=== PATIENT | male | born 1935 | race Caucasian/White ===

== ENCOUNTER 2018-11-29 11:33 | Emergency (ER) | payer MEDICARE, OTHER ==
[~2018-11-29] VITALS: Ht 190.5 cm; Wt 81.7 kg
[~2018-11-29 11:33] MED LIST: BENZ100A PO; GUAI120S1 PO
[2018-11-29 12:01] LABS: BASOPHILS ABSOLUTE AUTO 0.07 K/mm3 (0.00-0.23); BASOPHILS PERCENT AUTO 2 % (0-2); EOSINOPHILS ABSOLUTE AUTO 0.02 K/mm3 (0.00-0.68); EOSINOPHILS PERCENT AUTO 1 % (0-6); Hematocrit 42.1 % (37.0-53.0); Hemoglobin 14.1 g/dL (13.5-17.5); IMMATURE GRAN ABSOLUTE AUTO 0.01 K/mm3 (0.00-0.10); IMMATURE GRAN PERCENT AUTO 0 % (0-1); LYMPHOCYTES PERCENT AUTO 35 % (21-46); MONOCYTES ABSOLUTE AUTO 0.64 K/mm3 (0.16-1.47); MONOCYTES PERCENT AUTO 20 % (4-13); Mean Corpuscular HGB 34.5 pg (26.0-34.0); Mean Corpuscular HGB Conc 33.5 g/dL (31.5-36.5); Mean Corpuscular Volume 103 fL (80-100); Mean Platelet Volume 10.8 fL (9.1-12.4); NEUTROPHILS ABSOLUTE AUTO 1.33 K/mm3 (1.96-9.15); NEUTROPHILS PERCENT AUTO 42 % (41-73); Platelet Count 230 K/mm3 (150-400); RDW Coefficient Variation 14.3 % (11.7-14.2); RDW Standard Deviation 53.4 fL (35.1-46.3); Red Blood Cell Count 4.09 M/mm3 (4.30-5.90); White Blood Cell Count 3.17 K/mm3 (4.00-11.30)
[2018-11-29 12:30] LABS: Alanine Aminotransfer (ALT/SGP 25 U/L (12-78); Albumin, Blood 3.8 g/dL (3.4-5.0); Albumin/Globulin Ratio 1.3 (0.8-1.8); Alk Phos 74 U/L (50-136); Anion Gap 5 mmol/L (6-16); Aspartate Aminotrans (AST/SGOT 16 U/L (12-37); Bilirubin, Total 0.8 mg/dL (0.1-1.0); Blood Urea Nitrogen 11 mg/dL (8-24); Bun/Creatinine Ratio 15.6 (12.0-20.0); CO2, Blood 25 mmol/L (21-32); Calcium, Blood 8.9 mg/dL (8.5-10.1); Chloride, Blood 107 mmol/L (98-108); Creatinine, Blood 0.71 mg/dL (0.60-1.20); Globulin, Blood 2.9 g/dL (2.2-4.0); Glomerular Filtration Rate >60 (60-); Glucose, Blood 66 mg/dL (70-99); Potassium, Blood 4.5 mmol/L (3.5-5.5); Sodium, Blood 137 mmol/L (136-145); Total Protein, Blood 6.7 g/dL (6.4-8.2); Troponin I <0.015 ng/mL (0.000-0.040)
[2018-11-29] MEDS ORDERED: FINA5 PO (12:43)
== END 2018-11-29 13:40 | disposition home or self-care (01) ==
LOC: ER 11:33
PROVIDERS: Physician Assistant
DX: R07.89 Other chest pain (principal); Z87.891 Personal history of nicotine dependence
CPT/HCPCS: 36415; 80053; 84484; 85025; 93005; 93010; 99284-25

== ENCOUNTER 2021-01-13 15:36 | Inpatient (IN) | payer OTHER ==
[~2021-01-13] VITALS: Ht 195.6 cm; Wt 90.0 kg
[~2021-01-13 15:36] MED LIST changes: +AMLO10 PO; +Aspir 8181 MG PO; +FINA5 PO; +METO50ER PO; +MULVITA PO
[2021-01-13] MEDS ORDERED: Aspirin EC81 MG PO (15:52)
[2021-01-13] MEDS ORDERED: SILD25T PO (15:53)
[2021-01-13 17:57] LABS: Hematocrit 33.2 % (37.0-53.0); Hemoglobin 10.8 g/dL (13.5-17.5); Mean Corpuscular HGB 30.5 pg (26.0-34.0); Mean Corpuscular HGB Conc 32.5 g/dL (31.5-36.5); Mean Corpuscular Volume 94 fL (80-100); Mean Platelet Volume 11.2 fL (9.1-12.4); Platelet Count 164 K/mm3 (150-400); RDW Coefficient Variation 15.4 % (11.7-14.2); RDW Standard Deviation 52.6 fL (35.1-46.3); Red Blood Cell Count 3.54 M/mm3 (4.30-5.90); White Blood Cell Count 4.22 K/mm3 (4.00-11.30)
[2021-01-13 18:25] LABS: BAND PERCENT MAN 3 % (0-8); BASOPHILS ABSOLUTE MAN 0.08 K/mm3 (0.00-0.23); BASOPHILS PERCENT MAN 2 % (0-2); EOSINOPHILS PERCENT MAN 0 % (0-6); LYMPHOCYTES ABSOLUTE MAN 0.92 K/mm3 (0.84-5.20); LYMPHOCYTES PERCENT MAN 22 % (21-46); MONOCYTES ABSOLUTE MAN 0.54 K/mm3 (0.16-1.47); MONOCYTES PERCENT MAN 13 % (4-13); NEUTROPHILS ABSOLUTE MAN 2.65 K/mm3 (1.96-9.15); SEG NEUTROPHILS PERCENT MAN 60 % (41-73); TOTAL CELLS COUNTED 100
[2021-01-13 18:30] LABS: Alanine Aminotransfer (ALT/SGP 90 U/L (12-78); Albumin, Blood 2.8 g/dL (3.4-5.0); Albumin/Globulin Ratio 0.8 (0.8-1.8); Alk Phos 90 U/L (50-136); Anion Gap 6 mmol/L (6-16); Aspartate Aminotrans (AST/SGOT 66 U/L (12-37); Bilirubin, Total 0.5 mg/dL (0.1-1.0); Blood Urea Nitrogen 28 mg/dL (8-24); Bun/Creatinine Ratio 27.5 (12.0-20.0); CO2, Blood 23 mmol/L (21-32); Calcium, Blood 8.5 mg/dL (8.5-10.1); Chloride, Blood 103 mmol/L (98-108); Creatinine, Blood 1.02 mg/dL (0.60-1.20); Globulin, Blood 3.6 g/dL (2.2-4.0); Glomerular Filtration Rate >60 (60-); Glucose, Blood 93 mg/dL (70-99); Potassium, Blood 4.9 mmol/L (3.5-5.5); Sodium, Blood 132 mmol/L (136-145); Total Protein, Blood 6.4 g/dL (6.4-8.2); Troponin I 0.052 ng/mL (0.000-0.040)
[2021-01-13 20:08] LABS: D-Dimer, Quantitative 1.02 mg/L FEU (0.00-0.52)
[2021-01-13 20:31] LABS: International Normalized Ratio 0.98; Prothrombin Time Results 10.6 Sec (9.7-11.5)
[2021-01-13] MEDS ORDERED: CO Q10100 MG PO (21:39)
[2021-01-13] MEDS ORDERED: Vitamin B-121000 MCG PO (21:45)
[2021-01-13] MEDS ORDERED: Magnesium250 MG PO (21:46)
[2021-01-13] MEDS ORDERED: tumeric PO (21:47)
[2021-01-14 00:20] LABS: SARS-Cov-2 (COVID-19) PCR, MMC NEGATIVE (NEGATIVE)
[2021-01-14 04:10] LABS: Hematocrit 30.8 % (37.0-53.0); Mean Corpuscular HGB 30.3 pg (26.0-34.0); Mean Corpuscular HGB Conc 32.5 g/dL (31.5-36.5); Mean Corpuscular Volume 93 fL (80-100); Mean Platelet Volume 10.7 fL (9.1-12.4); Platelet Count 188 K/mm3 (150-400); RDW Coefficient Variation 15.5 % (11.7-14.2); RDW Standard Deviation 52.7 fL (35.1-46.3); White Blood Cell Count 3.93 K/mm3 (4.00-11.30)
[2021-01-14 04:27] LABS: International Normalized Ratio 1.03; Prothrombin Time Results 11.1 Sec (9.7-11.5)
[2021-01-14 04:36] LABS: Alanine Aminotransfer (ALT/SGP 71 U/L (12-78); Albumin, Blood 2.5 g/dL (3.4-5.0); Albumin/Globulin Ratio 0.8 (0.8-1.8); Alk Phos 74 U/L (50-136); Anion Gap 4 mmol/L (6-16); Aspartate Aminotrans (AST/SGOT 45 U/L (12-37); Bilirubin, Total 0.5 mg/dL (0.1-1.0); Blood Urea Nitrogen 25 mg/dL (8-24); Bun/Creatinine Ratio 22.7 (12.0-20.0); CO2, Blood 24 mmol/L (21-32); Calcium, Blood 7.9 mg/dL (8.5-10.1); Chloride, Blood 104 mmol/L (98-108); Globulin, Blood 3.1 g/dL (2.2-4.0); Glomerular Filtration Rate >60 (60-); Glucose, Blood 82 mg/dL (70-99); Magnesium, Blood 2.5 mg/dL (1.6-2.4); Phosphorus, Blood 3.1 mg/dL (2.5-4.9); Potassium, Blood 4.6 mmol/L (3.5-5.5); Sodium, Blood 132 mmol/L (136-145); Total Protein, Blood 5.6 g/dL (6.4-8.2)
[2021-01-14 05:00] LABS: BAND PERCENT MAN 16 % (0-8); BASOPHILS PERCENT MAN 0 % (0-2); EOSINOPHILS ABSOLUTE MAN 0.03 K/mm3 (0.00-0.68); EOSINOPHILS PERCENT MAN 1 % (0-6); LYMPHOCYTES % ATYPICAL MANUAL 7 % (0-0); LYMPHOCYTES ABSOLUTE MAN 1.02 K/mm3 (0.84-5.20); LYMPHOCYTES PERCENT MAN 19 % (21-46); MONOCYTES ABSOLUTE MAN 0.58 K/mm3 (0.16-1.47); MONOCYTES PERCENT MAN 15 % (4-13); NEUTROPHILS ABSOLUTE MAN 2.27 K/mm3 (1.96-9.15); SEG NEUTROPHILS PERCENT MAN 42 % (41-73); TOTAL CELLS COUNTED 100
--- NOTE | 2021-01-14 06:11 | NUR ---
SHIFT SUMMARY PATIENT ADMITTED TO UNIT AT APPROXIMETLY 0. FOUND TO BE A PLEASANT GENTLEMAN WHO IS A&OX4, [place], AND FOLLOWING COMMANDS. PRESENTS WITH CP RATED 5/10 AND DULL. VSS. ON RA. MARII ON THE MONITOR WITH A 1ST DEGREE BLOCK. A LITTLE BIT OF AN UNSTEADY GAIT NOTED PATIENT USUALLY USES A CANE. STATES BEEN FEELING WEAKER THAN USUAL LATELY. PRN FENTANYL Q2H DOING WELL FOR PAIN CONTROL. PATIENT COMPLAINING OF DRY COUGH AND ROBUSTUSSIN ORDERED. HEPARIN DRIP INFUSING PER ORDER. NO ACUTE CONCERNS AT THIS TIME. WILL CONTINUE TO MONITOR UNTIL DAY SHIFT RN ASSUMES CARE.
--- NOTE | 2021-01-14 18:50 | NUR ---
NO ACUTE EVENTS THIS SHIFT, VSS. PATIENT IS ALERT AND ORIENTED, DENIES CHEST PAIN THIS SHIFT. HEPARIN GTT CONTINUED PER EMAR. ECHO DONE TODAY, PLAN IS FOR STRESS TEST TOMORROW. DIURESIS SCHEDULE STARTED TODAY WITH IV LASIX GIVEN PER EMAR. PATIENT ABLE TO CALL APPROPRIATELY, PATIENT HAD CONSISTENT OUTPUT IN URINAL THROUGHOUT SHIFT.
--- NOTE | 2021-01-15 05:36 | NUR ---
SHIFT SUMMARY PT IS ALERT AND ORIENTED. AFTER PROCEDURE PAITIENT HAS BEEN VERY LETHARGIC. BILAT LOWER EXT HAVE PULSES PER DOPPLER AND ARE BOTH WARM TO TOUCH. PT HAS COMPLAINED OF SEVERE LEFT CALF AND FOOT PAIN AND WAS MEDICATED PER EMAR. PT'S VITALS ARE STABLE AND ON 3L NC. FEMORAL SITE IS CDI NO DRAINAGE IS VISIBLE.
--- NOTE | 2021-01-15 05:55 | NUR ---
SHIFT SUMMARY PT IS ALERT AND ORIENTED. VITALS ARE STABLE AND ON ROOM AIR. HEPARIN HAS BEEN INFUSING. PT USING URINAL AT BEDSIDE. DENIES CHEST PAIN AND SOB. THERE HAVE BEEN NO ACUTE CHANGES TO PT. PT IS NPO SINCE MIDNIGHT WITH NO CAFFIENE PRODUCTS FOR PROCEDURE.
[2021-01-15 06:32] LABS: Hematocrit 33.9 % (37.0-53.0); Hemoglobin 11.1 g/dL (13.5-17.5); Mean Corpuscular HGB 30.4 pg (26.0-34.0); Mean Corpuscular HGB Conc 32.7 g/dL (31.5-36.5); Mean Corpuscular Volume 93 fL (80-100); Mean Platelet Volume 10.8 fL (9.1-12.4); Platelet Count 224 K/mm3 (150-400); RDW Coefficient Variation 15.4 % (11.7-14.2); RDW Standard Deviation 52.7 fL (35.1-46.3); Red Blood Cell Count 3.65 M/mm3 (4.30-5.90); White Blood Cell Count 3.99 K/mm3 (4.00-11.30)
[2021-01-15 06:47] LABS: Anion Gap 3 mmol/L (6-16); Blood Urea Nitrogen 24 mg/dL (8-24); Bun/Creatinine Ratio 20.3 (12.0-20.0); CO2, Blood 26 mmol/L (21-32); Calcium, Blood 8.2 mg/dL (8.5-10.1); Chloride, Blood 105 mmol/L (98-108); Creatinine, Blood 1.18 mg/dL (0.60-1.20); Glomerular Filtration Rate >60 (60-); Glucose, Blood 81 mg/dL (70-99); Potassium, Blood 4.6 mmol/L (3.5-5.5); Sodium, Blood 134 mmol/L (136-145)
[2021-01-15 07:33] LABS: BAND PERCENT MAN 7 % (0-8); BASOPHILS PERCENT MAN 0 % (0-2); EOSINOPHILS PERCENT MAN 0 % (0-6); LYMPHOCYTES % ATYPICAL MANUAL 1 % (0-0); LYMPHOCYTES ABSOLUTE MAN 0.91 K/mm3 (0.84-5.20); LYMPHOCYTES PERCENT MAN 22 % (21-46); MONOCYTES ABSOLUTE MAN 0.35 K/mm3 (0.16-1.47); MONOCYTES PERCENT MAN 9 % (4-13); NEUTROPHILS ABSOLUTE MAN 2.71 K/mm3 (1.96-9.15); SEG NEUTROPHILS PERCENT MAN 61 % (41-73); TOTAL CELLS COUNTED 100
--- NOTE | 2021-01-15 18:28 | NUR ---
SHIFT SUMMARY NO ACUTE EVENTS THIS SHIFT, VSS. PATIENT IS ALERT AND ORIENTED, BUT CAN BE FORGETFULL AT TIMES. ON ROOM AIR, STANDBY ASSIST. PATTIENT WORKED WITH PT TODAY, WALKED IN HALLWAY. PATIENT DENIED CHEST PAIN/PRESSURE THROUGH THIS SHIFT. PATIENT WAS SCHEDULED FOR FOR 2 DAY STRESS TEST TO START TODAY, HOWEVER WHEN NUCLEAR MED CAME TO CONDUCT PORTION OF THE TEST TODAY THE PATIENT REFUSED STATING HE DID NOT WANT "RADIATION" OR ANY OF THOSE "TERRIBLE CHEMICALS". CAL SMITH WAS PRESENT FOR PATIENT'S REFUSAL AND PROVIDED ADDITIONAL INFORMATION TO PATIENT REGARDING STRESS TEST, DR. ESPINOZA CAME TO DISCUSS THE STRESS TEST WITH PATIENT WHO AGREED TO CONTINUE WITH STRESS TEST WHICH IS SCHEDULED FOR A 1 DAY TOMORROW.
--- NOTE | 2021-01-15 19:57 | NUR ---
PT IS ALERT AND ORIENTED. VITALS ARE STABLE. DENIES CHEST PAIN OR SOB. PT WAS REINFORCED TO FALL PREVENTION AND SAFETY. CALL LIGHT WITHIN REACH.
[2021-01-16 03:53] LABS: BASOPHILS ABSOLUTE AUTO 0.06 K/mm3 (0.00-0.23); BASOPHILS PERCENT AUTO 2 % (0-2); EOSINOPHILS PERCENT AUTO 0 % (0-6); Hematocrit 33.2 % (37.0-53.0); Mean Corpuscular HGB 30.7 pg (26.0-34.0); Mean Corpuscular HGB Conc 33.1 g/dL (31.5-36.5); Mean Corpuscular Volume 93 fL (80-100); Mean Platelet Volume 10.1 fL (9.1-12.4); Platelet Count 202 K/mm3 (150-400); RDW Coefficient Variation 15.3 % (11.7-14.2); Red Blood Cell Count 3.58 M/mm3 (4.30-5.90); White Blood Cell Count 3.45 K/mm3 (4.00-11.30)
[2021-01-16 03:54] LABS: IMMATURE GRAN ABSOLUTE AUTO 0.01 K/mm3 (0.00-0.10); IMMATURE GRAN PERCENT AUTO 0 % (0-1); LYMPHOCYTES ABSOLUTE AUTO 1.48 K/mm3 (0.84-5.20); LYMPHOCYTES PERCENT AUTO 43 % (21-46); MONOCYTES ABSOLUTE AUTO 0.54 K/mm3 (0.16-1.47); MONOCYTES PERCENT AUTO 16 % (4-13); NEUTROPHILS ABSOLUTE AUTO 1.36 K/mm3 (1.96-9.15); NEUTROPHILS PERCENT AUTO 39 % (41-73)
[2021-01-16 04:13] LABS: Albumin, Blood 2.6 g/dL (3.4-5.0); Anion Gap 2 mmol/L (6-16); Blood Urea Nitrogen 21 mg/dL (8-24); Bun/Creatinine Ratio 19.8 (12.0-20.0); CO2, Blood 27 mmol/L (21-32); Calcium, Blood 8.4 mg/dL (8.5-10.1); Chloride, Blood 103 mmol/L (98-108); Creatinine, Blood 1.06 mg/dL (0.60-1.20); Glomerular Filtration Rate >60 (60-); Glucose, Blood 83 mg/dL (70-99); Phosphorus, Blood 3.1 mg/dL (2.5-4.9); Potassium, Blood 4.4 mmol/L (3.5-5.5); Sodium, Blood 132 mmol/L (136-145)
--- NOTE | 2021-01-16 05:30 | NUR ---
SHIFT SUMMARY PT IS ALERT AND ORIENTED. VITALS HAVE REMAINED STABLE WITH SATS OF ABOVE 92% ON ROOM AIR. PT DENIES CHEST PAIN OR SOB. DAILY WEIGHT TAKEN. THERE HAVE BEEN NO ACUTE CHANGES. PT NOT INFUSING AND FLUIDS AT THE TIME. PT HAVE BEEN USING URINAL AT BEDSIDE. PT'S FOOT BOARD OFF DUE TO PT BEING 6 FT 5. WE HAVE REINFORCED SAFETY AND FALL PREVENTION AND PATIENT IS ACCEPTS AND EXHIBITS KNOWLEDGE OF THE IMPORTANCE OF USING THE CALL LIGHT BEFORE GETTING OUT OF BED OR IF HELP IS NEEDED.
[2021-01-16] MEDS ORDERED: ATORVASTATIN CA40 MG PO (16:14)
[2021-01-16] MEDS ORDERED: CLOP75 PO (16:15)
[2021-01-16] MEDS ORDERED: FURO40 PO (16:16)
--- NOTE | 2021-01-16 16:49 | NUR ---
NO ACUTE EVENTS THIS SHIFT, VSS. PATIENT DENIED CHEST PAIN/PRESSURE THIS SHIFT. ABLE TO AMBULATE INDEPENDENTLY WITH STEADY GATE. PATIENT PROVIDED DISCHARGE INFO REGARDING FOLLOW UP PLANS, REASONS TO RETURN TO THE HOSPITAL, AND MEDICATION INFORMATION. PATIENT VERBALIZED UNDERSTANDING, NO SIGNS OF ACUTE DISTRESS. LEFT WITH FAMILY VIA PERSONAL VEHICLE.
== END 2021-01-16 16:51 | disposition home or self-care (01) | DRG 280 ==
LOC: ER 15:36 → PCU 20:17
PROVIDERS: Emergency Medicine; Family Medicine; Nurse Practitioner Acute Care; ADMIT Internal Medicine
DX: I11.0 Hypertensive heart disease with heart failure (principal); I50.31 Acute diastolic (congestive) heart failure; I21.A1 Myocardial infarction type 2; E87.1 Hypo-osmolality and hyponatremia; Z20.822 Contact with and (suspected) exposure to COVID-19; I44.0 Atrioventricular block, first degree; I34.0 Nonrheumatic mitral (valve) insufficiency; K22.70 Barrett's esophagus without dysplasia; Z87.01 Personal history of pneumonia (recurrent); Z98.890 Other specified postprocedural states; Z87.891 Personal history of nicotine dependence; Z87.19 Personal history of other diseases of the digestive system; Z88.0 Allergy status to penicillin
CPT/HCPCS: 36415; 71045; 78452; 80048; 80053; 80069; 83735; 83880; 84100; 84484; 85025; 85379; 85610; 85730; 93005; 93010; 93017; 93306; 96374; 97112; 97116; 97162; 99285-25; A9270; A9500; J0280; J1644; J1650; J1940; J2785; J3010; U0004

== ENCOUNTER 2021-01-18 15:33 | Emergency (ER) | payer OTHER ==
[~2021-01-18] VITALS: Ht 195.6 cm; Wt 90.7 kg
[~2021-01-18 15:33] MED LIST changes: +ATORVASTATIN CA40 MG PO; +Aspirin EC81 MG PO; +CLOP75 PO; +CO Q10100 MG PO; +FURO40 PO; +Magnesium250 MG PO; +SILD25T PO; +Vitamin B-121000 MCG PO; +tumeric PO
[2021-01-18 16:14] LABS: Hemoglobin 11.2 g/dL (13.5-17.5); Mean Corpuscular HGB 30.6 pg (26.0-34.0); Mean Corpuscular HGB Conc 32.9 g/dL (31.5-36.5); Mean Corpuscular Volume 93 fL (80-100); Mean Platelet Volume 10.4 fL (9.1-12.4); Platelet Count 223 K/mm3 (150-400); RDW Coefficient Variation 15.4 % (11.7-14.2); RDW Standard Deviation 52.1 fL (35.1-46.3); Red Blood Cell Count 3.66 M/mm3 (4.30-5.90); White Blood Cell Count 4.48 K/mm3 (4.00-11.30)
[2021-01-18 16:33] LABS: Alanine Aminotransfer (ALT/SGP 49 U/L (12-78); Albumin/Globulin Ratio 0.8 (0.8-1.8); Alk Phos 77 U/L (50-136); Anion Gap 3 mmol/L (6-16); Aspartate Aminotrans (AST/SGOT 31 U/L (12-37); BAND PERCENT MAN 1 % (0-8); BASOPHILS ABSOLUTE MAN 0.08 K/mm3 (0.00-0.23); BASOPHILS PERCENT MAN 2 % (0-2); Bilirubin, Total 0.4 mg/dL (0.1-1.0); Blood Urea Nitrogen 28 mg/dL (8-24); CO2, Blood 25 mmol/L (21-32); Calcium, Blood 8.5 mg/dL (8.5-10.1); Chloride, Blood 108 mmol/L (98-108); EOSINOPHILS ABSOLUTE MAN 0.08 K/mm3 (0.00-0.68); EOSINOPHILS PERCENT MAN 2 % (0-6); Globulin, Blood 3.7 g/dL (2.2-4.0); Glomerular Filtration Rate >60 (60-); Glucose, Blood 91 mg/dL (70-99); LYMPHOCYTES % ATYPICAL MANUAL 2 % (0-0); LYMPHOCYTES ABSOLUTE MAN 1.88 K/mm3 (0.84-5.20); LYMPHOCYTES PERCENT MAN 40 % (21-46); MONOCYTES ABSOLUTE MAN 0.22 K/mm3 (0.16-1.47); MONOCYTES PERCENT MAN 5 % (4-13); NEUTROPHILS ABSOLUTE MAN 2.19 K/mm3 (1.96-9.15); Potassium, Blood 4.8 mmol/L (3.5-5.5); SEG NEUTROPHILS PERCENT MAN 48 % (41-73); Sodium, Blood 136 mmol/L (136-145); TOTAL CELLS COUNTED 100; Total Protein, Blood 6.7 g/dL (6.4-8.2); Troponin I 0.056 ng/mL (0.000-0.040)
== END 2021-01-18 18:39 | disposition short-term general hospital (02) ==
LOC: ER 15:33
PROVIDERS: Emergency Medicine
DX: I05.9 Rheumatic mitral valve disease, unspecified (principal); R55 Syncope and collapse; Z87.891 Personal history of nicotine dependence
CPT/HCPCS: 71045; 80053; 83880; 84484; 85025; 93005; 93010; 99285-25

== ENCOUNTER 2021-03-04 12:34 | Inpatient (IN) | payer OTHER, MEDICARE ==
[~2021-03-04] VITALS: Ht 195.6 cm; Wt 96.8 kg
[2021-03-04] MEDS ORDERED: FURO20 PO (12:52)
[2021-03-04 13:33] LABS: Hematocrit 29.5 % (37.0-53.0); Hemoglobin 9.6 g/dL (13.5-17.5); Mean Corpuscular HGB Conc 32.5 g/dL (31.5-36.5); Mean Corpuscular Volume 92 fL (80-100); Mean Platelet Volume 11.7 fL (9.1-12.4); Platelet Count 120 K/mm3 (150-400); RDW Coefficient Variation 17.9 % (11.7-14.2); White Blood Cell Count 2.98 K/mm3 (4.00-11.30)
[2021-03-04 13:35] LABS: Albumin, Blood 2.3 g/dL (3.4-5.0); Albumin/Globulin Ratio 0.5 (0.8-1.8); Bilirubin, Total 0.5 mg/dL (0.1-1.0); Bun/Creatinine Ratio 22.1 (12.0-20.0); Calcium, Blood 7.9 mg/dL (8.5-10.1); Creatinine, Blood 1.31 mg/dL (0.60-1.20); Globulin, Blood 4.2 g/dL (2.2-4.0); Potassium, Blood 5.8 mmol/L (3.5-5.5); Total Protein, Blood 6.5 g/dL (6.4-8.2); Troponin I 0.332 ng/mL (0.000-0.040)
[2021-03-04 14:24] LABS: BAND PERCENT MAN 5 % (0-8); BASOPHILS PERCENT MAN 0 % (0-2); EOSINOPHILS ABSOLUTE MAN 0.02 K/mm3 (0.00-0.68); EOSINOPHILS PERCENT MAN 1 % (0-6); LYMPHOCYTES % ATYPICAL MANUAL 4 % (0-0); LYMPHOCYTES ABSOLUTE MAN 0.77 K/mm3 (0.84-5.20); LYMPHOCYTES PERCENT MAN 22 % (21-46); MONOCYTES ABSOLUTE MAN 0.08 K/mm3 (0.16-1.47); MONOCYTES PERCENT MAN 3 % (4-13); NEUTROPHILS ABSOLUTE MAN 2.08 K/mm3 (1.96-9.15); SEG NEUTROPHILS PERCENT MAN 65 % (41-73); TOTAL CELLS COUNTED 100
[2021-03-04] MEDS ORDERED: POTA10T PO (16:08)
[2021-03-04 17:14] LABS: Percent Saturation 12.1 % (20.0-50.0)
[2021-03-04] MEDS ORDERED: ERYT.5TO LEFTEYE (20:42)
[2021-03-04] MEDS ORDERED: Artificial Tear15 ML BOTHEYES (20:44)
[2021-03-05 02:46] LABS: Bun/Creatinine Ratio 23.1 (12.0-20.0); Calcium, Blood 7.8 mg/dL (8.5-10.1); Creatinine, Blood 1.69 mg/dL (0.60-1.20); Potassium, Blood 6.1 mmol/L (3.5-5.5)
--- NOTE | 2021-03-05 05:22 | NUR ---
SUMMARY PT HAS DENIED CX PAIN OR SOB. PT PRIMARY COMPLAINT IS PERSISTANT DRY HACKING COUGH. PT HAS HAD TYLENOL #3, ROBITUSSIN, TESSALON PERLS. PT HAS HAD RELIEF FROM COUGH AND ABLE TO SLEEP. PT HAS BEEN VOIDING WELL. PT HAD REPORTED CRITICAL POTASSIUM. TEZ FLYNN CALLED AND D 50, INSULIN AND CALCIUM WAS ORDERED. PT LABS WILL BE DRAWN AGAIN AT 0700 HRS. PT CURRENTLY SLEEPING IN NO DISTRESS.
[2021-03-05 08:05] LABS: Bun/Creatinine Ratio 22.4 (12.0-20.0); Calcium, Blood 7.7 mg/dL (8.5-10.1); Creatinine, Blood 1.61 mg/dL (0.60-1.20); Potassium, Blood 5.2 mmol/L (3.5-5.5)
[2021-03-05 14:52] LABS: Magnesium, Blood 2.9 mg/dL (1.6-2.4)
[2021-03-05 14:54] LABS: Potassium, Blood 6.6 mmol/L (3.5-5.5)
--- NOTE | 2021-03-05 19:35 | NUR ---
a+o, cooperative with care, requested change in specialist due to past history, hospitalist agreec but a set of medications were delayed until new orders had been written for them by the hospitalist, all medications have been given at this time in the order and amount specified just delayed, pt had another run of vtac but converted on his own while treatment was being decided, k remains high but is lower than last checked, rm air, iv in lfa w no s/sx of infection or infiltration, bsr shared with noc nurse and pt
--- NOTE | 2021-03-05 20:45 | NUR ---
ARRYTHMIA AT THE BEGINNING OF THIS SHIFT AT 1900 TECH MONITOR NOTIFIED THIS NURSE THAT PT WAS IN V TACH WITH A RATE OF 190. PT WAS USING THE URINAL AND PT CONVERTED BACK AFTER 60 SECONDS. NOTIFIED DOCTOR WHO SAID TO MONITOR PATIENT.
--- NOTE | 2021-03-05 22:17 | NUR ---
ARRYTHMIA PT WENT INTO V TACH AGAIN AT 2146 WITH A PULSE OF 214. HOSPITALIST NOTIFIED AND ORDERED KAYEXALATE AND FOR PT TO BE TRANSFERED TO PCU ON A AMIODERONE DRIP. PT STATES THAT HE IS FEELING SHORT OF BREATH, BUT PT IS ON 1.5.L NC WITH SP02 AT 99%. PT MOVING TO ROOM ICU 14
--- NOTE | 2021-03-05 22:40 | NUR ---
PT TRANSFERED TO ICU 14 FROM MEDICAL ROOM 301. REPORT RECEIVED FROM FALLON SMITH. PT ARRIVED TRANSFERED TO ICU BED VIA SLIDE SHEET. PT ALERT AND ORIENTED, FOLLOWS COMMANDS. PT IN VTACH UPON ARRIVAL HR 204, CONVERTED AT 2245 HR 50'S. PT COMPLAINING OF CHEST/STERNAL PAIN DURING VTACH, STATES HE IS FEELING MUCH BETTER AFTER CONVERTING. STATES HE NORMALLY HAS DYSPNEA WITH EXERTION AND GENERALIZED WEAKNESS. PT CURRENTLY ON 2L NC SPO2 97%. SBP 115-120'S, RECEIVING SCHEDULED HYDRALAZINE. AMIODARONE BOLUS GIVEN, AMIODARONE GTT INFUSING AT 1 MG/MIN, WILL DECREASE AFTER 6 HRS PER ORDERS. LUNGS CLEAR WITH DIMINISHED BASES. ATTENDS IN PLACE PER PT'S REQUEST.
[2021-03-06 03:51] LABS: BASOPHILS ABSOLUTE AUTO 0.04 K/mm3 (0.00-0.23); BASOPHILS PERCENT AUTO 1 % (0-2); EOSINOPHILS PERCENT AUTO 0 % (0-6); Hematocrit 27.3 % (37.0-53.0); Hemoglobin 8.9 g/dL (13.5-17.5); Mean Corpuscular HGB 29.9 pg (26.0-34.0); Mean Corpuscular HGB Conc 32.6 g/dL (31.5-36.5); Mean Corpuscular Volume 92 fL (80-100); Mean Platelet Volume 10.5 fL (9.1-12.4); Platelet Count 137 K/mm3 (150-400); RDW Standard Deviation 60.3 fL (35.1-46.3); Red Blood Cell Count 2.98 M/mm3 (4.30-5.90); White Blood Cell Count 2.94 K/mm3 (4.00-11.30)
[2021-03-06 03:56] LABS: IMMATURE GRAN ABSOLUTE AUTO 0.01 K/mm3 (0.00-0.10); IMMATURE GRAN PERCENT AUTO 0 % (0-1); LYMPHOCYTES PERCENT AUTO 44 % (21-46); MONOCYTES ABSOLUTE AUTO 0.32 K/mm3 (0.16-1.47); MONOCYTES PERCENT AUTO 11 % (4-13); NEUTROPHILS ABSOLUTE AUTO 1.27 K/mm3 (1.96-9.15); NEUTROPHILS PERCENT AUTO 43 % (41-73)
[2021-03-06 04:11] LABS: Albumin, Blood 2.3 g/dL (3.4-5.0); Anion Gap 3 mmol/L (6-16); Blood Urea Nitrogen 39 mg/dL (8-24); Bun/Creatinine Ratio 22.5 (12.0-20.0); CO2, Blood 25 mmol/L (21-32); Calcium, Blood 7.7 mg/dL (8.5-10.1); Chloride, Blood 100 mmol/L (98-108); Creatinine, Blood 1.73 mg/dL (0.60-1.20); Glomerular Filtration Rate 38 (60-); Glucose, Blood 100 mg/dL (70-99); Magnesium, Blood 2.8 mg/dL (1.6-2.4); Phosphorus, Blood 3.9 mg/dL (2.5-4.9); Potassium, Blood 5.3 mmol/L (3.5-5.5); Sodium, Blood 128 mmol/L (136-145)
--- NOTE | 2021-03-06 05:44 | NUR ---
SHIFT SUMMARY PT RESTING COMFORTABLY, OCCASIONALLY AWAKENS DUE TO DRY COUGH. PRN TESSALON AND TYLENOL #3 GIVEN WITH MINIMAL AFFECT. PT ALERT AND ORIENTED, FOLLOWING COMMANDS. AMIODARONE INFUSING AT 0.5 MG/MIN. HR 50-60'S TYPE 2 HEART BLOCK ON MONITOR, SBP 120-130'S, SPO2 99% ON 1L NC. PT USES URINAL, CALLS FOR BEDPAN IF NEEDED. CALL LIGHT WITHIN REACH, USED APPROPRIATELY. ONE BOWEL MOVEMENT THIS SHIFT, KAYEXALATE GIVEN PRIOR TO ARRIVAL TO ICU.
--- NOTE | 2021-03-06 07:17 | NUR ---
Assumed care of this patient this morning. He is a/o x 4 and has no c/o at this time. He is currently on RA and O2 sat is 99%. Cardio consult is pending. Pt is able to make his needs known and has his call light in reach.
--- NOTE | 2021-03-06 12:11 | NUR ---
Echocardiogram completed.
--- NOTE | 2021-03-06 12:34 | NUR ---
Dr Miller is here to see the pt for cardiology consult. He gave orders to stop the amiodarone gtt, which was done and continue to monitor in the ICU. Dr Miller is also going to talk to Dr Martinez for a possible pacemaker. He is discussing the plan with the pt now.
--- NOTE | 2021-03-06 17:15 | NUR ---
Pt and daughter wanted to review levels of care and cpr versus dnr. pt not confident of his choices. His daughter was present and expressed the same concerns. We reviewed in careful detail. Treament of cardiac dysrthmias with cardioverson and medications. We then discussed lethat rythms and defibrilation. We discussed the after care of successful cpr and icu care ventilation and cardiogenic shock. They had many questions and were engaged. We discussed that we do not decriminate levels of care by age. Discussed a holistic apporach and having a careful discussion with his family. We reviewed having to have a love one have to take him off of life support. Suggested he discuss it further with his family and weigher and charger. 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 His daughter stated she could make the call for him. Gave them the book on hard choice for loving families. The daughter will review with the patients . Suggested that he make an advance directive that accomadates changes in health as he ages or if he has another event. Reenforced that with worsening chronic disease or debilty statisitcally cpr may not be a good choice and cause suffering. 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 Advised nursing and will follow up with patient and support his journey.
--- NOTE | 2021-03-06 17:59 | NUR ---
Shift Summary Pt is a/o x 4 and denies chest pain or discomfort. Dr Miller was consulted for cardio this morning and made some adjustments on his meds. Cardiology decided that the pt will need a pacemaker/defibrilator and his preference is to go to the [facility] as they have done his other cardiac procedures and he is service connected. The plan is for him to be [facility] transferred to the [facility] as soon as a bed is available. The pt and his family are in agreement with this plan and this nurse has spoken with them about this and answered all of their questions. Pt is using the urinal in bed as he remains on bedrest per the doctor.He is able to make his needs known and uses the call light when needed.
[2021-03-07 03:28] LABS: BASOPHILS ABSOLUTE AUTO 0.04 K/mm3 (0.00-0.23); BASOPHILS PERCENT AUTO 1 % (0-2); EOSINOPHILS PERCENT AUTO 0 % (0-6); Hematocrit 29.4 % (37.0-53.0); Hemoglobin 9.8 g/dL (13.5-17.5); Mean Corpuscular HGB 29.8 pg (26.0-34.0); Mean Corpuscular HGB Conc 33.3 g/dL (31.5-36.5); Mean Corpuscular Volume 89 fL (80-100); Mean Platelet Volume 10.4 fL (9.1-12.4); Platelet Count 153 K/mm3 (150-400); RDW Coefficient Variation 17.8 % (11.7-14.2); RDW Standard Deviation 59.1 fL (35.1-46.3); Red Blood Cell Count 3.29 M/mm3 (4.30-5.90); White Blood Cell Count 2.93 K/mm3 (4.00-11.30)
[2021-03-07 03:34] LABS: IMMATURE GRAN ABSOLUTE AUTO 0.01 K/mm3 (0.00-0.10); IMMATURE GRAN PERCENT AUTO 0 % (0-1); LYMPHOCYTES ABSOLUTE AUTO 1.06 K/mm3 (0.84-5.20); LYMPHOCYTES PERCENT AUTO 36 % (21-46); MONOCYTES ABSOLUTE AUTO 0.33 K/mm3 (0.16-1.47); MONOCYTES PERCENT AUTO 11 % (4-13); NEUTROPHILS ABSOLUTE AUTO 1.49 K/mm3 (1.96-9.15); NEUTROPHILS PERCENT AUTO 51 % (41-73)
[2021-03-07 03:49] LABS: Albumin, Blood 2.2 g/dL (3.4-5.0); Anion Gap 4 mmol/L (6-16); Blood Urea Nitrogen 39 mg/dL (8-24); Bun/Creatinine Ratio 22.3 (12.0-20.0); CO2, Blood 26 mmol/L (21-32); Calcium, Blood 7.5 mg/dL (8.5-10.1); Chloride, Blood 100 mmol/L (98-108); Creatinine, Blood 1.75 mg/dL (0.60-1.20); Glomerular Filtration Rate 37 (60-); Glucose, Blood 93 mg/dL (70-99); Phosphorus, Blood 4.1 mg/dL (2.5-4.9); Potassium, Blood 4.9 mmol/L (3.5-5.5); Sodium, Blood 130 mmol/L (136-145)
--- NOTE | 2021-03-07 04:36 | NUR ---
SHIFT SUMMARY PATIENT IS ALERT AND ORIENTED X4. ON BEDREST, NEEDED ASSISTANCE WIITH REPOSITIONING. 02 SATS 99% ON RA. SOB WHEN LAYING SUPINE. HR 70s-80s. BP STABLE. PT USES URINAL, DARK BLANCA URINE. PO FLUIDS ENCOURAGED. VSS, NO ACUTE CHANGES. PATIENT SLEPT MOST THE NIGHT. CALL LIGHT IN REACH.
--- NOTE | 2021-03-07 07:47 | NUR ---
Assumed care of this pt this morning. He is wake and a/o x 4 and on the phone giving an update to his . He remains on bedrest, using the urinal at the bedside. VSS. He denies chest pain or discomfort. PO water has been encouraged as he prefers coffee. He has his call light and uses it when needed.
--- NOTE | 2021-03-07 11:38 | NUR ---
Pt has been assigned a bed at the [facility] ICU room 30. Report has been called to Kristen SMITH. Pt and family have been notified. Transport is scheduled for 11:50. Pt continues to deny chest pain and is currently on RA in the high 90's.
--- NOTE | 2021-03-07 14:21 | NUR ---
brief encouraging and supportive visit with pt before his transfer.
== END 2021-03-07 11:45 | disposition short-term general hospital (02) | DRG 291 ==
LOC: ER 12:34 → MEDS 16:51 → ICUW 16:51 → MEDS 18:50 → ICUW 03-05 22:38
PROVIDERS: Emergency Medicine; Family Medicine; Internal Medicine; ADMIT Internal Medicine
DX: I13.0 Hypertensive heart and chronic kidney disease with heart failure and stage 1 through stage 4 chronic kidney disease, or unspecified chronic kidney disease (principal); I50.33 Acute on chronic diastolic (congestive) heart failure; I47.2 Ventricular tachycardia; D61.818 Other pancytopenia; N17.9 Acute kidney failure, unspecified; E87.1 Hypo-osmolality and hyponatremia; Z66 Do not resuscitate; I44.1 Atrioventricular block, second degree; D63.1 Anemia in chronic kidney disease; I34.0 Nonrheumatic mitral (valve) insufficiency; N18.30 Chronic kidney disease, stage 3 unspecified; E87.5 Hyperkalemia; K22.70 Barrett's esophagus without dysplasia; Z95.2 Presence of prosthetic heart valve; Z87.891 Personal history of nicotine dependence; Z91.040 Latex allergy status; Z98.890 Other specified postprocedural states; Z88.0 Allergy status to penicillin; Z88.8 Allergy status to other drugs, medicaments and biological substances; Z79.82 Long term (current) use of aspirin; Z79.899 Other long term (current) drug therapy
CPT/HCPCS: 36415; 71046; 76770; 80048; 80053; 80069; 82728; 82947; 83540; 83550; 83735; 83880; 84132; 84484; 85025; 93005; 93010; 93306; 99285-25; A9270; J0282; J0610; J1650; J1815; J7060